=== PATIENT | male | born 1970 | race Caucasian/White ===

== ENCOUNTER 2022-02-27 17:48 | Emergency (ER) | payer OTHER, SELFPAY ==
[2022-02-27 17:49] VITALS: BP 144/104; PULSE 82; RESP 15; TEMP 36.5; O2SAT 98; BMI 33.2
--- NOTE | 2022-02-27 18:16 | RAD_ITS ---
STUDY: X-RAY CHEST REASON FOR EXAM: Male, 51 years old. injury TECHNIQUE: PA and lateral views of the chest. COMPARISON: None. FINDINGS: The lungs are clear and expanded. There is no demonstrated pleural abnormality. Normal size heart. Normal mediastinum and cale. Normal visualized pulmonary arteries. Normal visualized aortic arch and descending thoracic aorta. Normal visualized thoracic spine. Normal visualized ribs, clavicles, and shoulders. There is no demonstrated abnormality of the visualized soft tissue structures of the upper abdomen. RAD/Chest PA and Lateral IMPRESSION: Normal x-ray examination of the chest. Electronically Signed: Freddie Corbin MD at 18:37 EST ,
--- NOTE | 2022-02-27 18:31 | CT_ITS ---
STUDY: CT ABDOMEN AND PELVIS WITH CONTRAST REASON FOR EXAM: Male, 51 years old. R flank blunt trauma RADIATION DOSAGE (If Supplied By Facility): CTDIvol = ( 15.87 ) mGy, DLP = ( 1275.90 ) mGycm TECHNIQUE: Transaxial images were obtained from the dome of the diaphragm to the symphysis pubis without oral contrast. IV 100mL Isovue-370 was administered. Sagittal and coronal images were reconstructed. Individualized dose optimization techniques were used for this CT. COMPARISON: None. FINDINGS: The visualized lung bases are unremarkable. The visualized portions of the heart are within normal limits. There is a 3 cm oval area of decreased attenuation and/or enhancement within the medial aspect of the posterior segment the right lobe of the liver adjacent to Morison space worrisome for laceration/hematoma. This appears confined by the liver capsule. No hemoperitoneum is appreciated. Normal gallbladder and extrahepatic biliary system. Normal spleen. Normal pancreas. Normal bilateral adrenal glands. Normal right kidney. Normal left kidney. There is a small hiatal hernia. Normal small intestine. Normal colon. There is non-visualization of the appendix. Normal abdominal aorta. Normal inferior vena cava. Normal retroperitoneum. Normal urinary bladder. Normal abdominal wall. Normal osseous structures. CT/Abdomen/Pelvis W IV Cont ONLY IMPRESSION: Suspect 3 cm laceration/hematoma of the subcapsular medial aspect of the posterior segment the right lobe of the liver. No gross hemoperitoneum. N.B. : The above Results were Read Back by Freddie Corbin MD to Jimmie Alejandre MD, and understanding confirmed on 02/27/2022 19:36:48 (ET). Electronically Signed: Freddie Corbin MD at 19:38 EST ,
[2022-02-27 18:35] LABS: Absolute Neutrophil Count 8.3 X10^3/uL (2.0-7.7); Basophil# 0.04 X10^3/uL; Basophil% 0.4 % (0-1); Eosinophil# 0.08 X10^3/uL; Eosinophils% 0.7 % (0-5); Hematocrit 44.3 % (40-54); Hemoglobin 15.1 g/dL (13.0-16.5); Lymphocyte % 15.3 % (19-41); Mean Corp Hgb Conc 34.1 g/dL (32-36); Mean Corpuscular Hgb 30.9 pg (27.0-32.0); Mean Corpuscular Volume 90.8 fL (80-94); Mean Platelet Vol. 8.8 fl (6.2-12.0); Monocyte# 0.97 X10^3/uL; Monocyte% 8.7 % (0-10); NRBC Flagged by Analyzer 0 % (0-5); Neutrophil # 8.31 X10^3/uL (2.7-7.7); Neutrophil % 74.5 % (47-70); Platelet Count 301 K/mm3 (150-450); RBC Distribution Width CV 11.6 % (11.6-14.6); RBC Distribution Width SD 38.5 fl (35.1-43.9); Red Blood Count 4.88 M/mm3 (4.6-6.2); White Blood Count 11.1 K/mm3 (4.4-11.0)
[2022-02-27 18:40] LABS: Mucous, Urine 0 SEEN /hpf (<or=2+)
[2022-02-27 18:41] LABS: Color, Urine Yellow (Yellow); Glucose, Dipstick Normal (Normal); Ketone-Dipstick 50 mg/dl (Negative); Leukocyte Esterase-Dipstick 25 /ul (Negative); Nitrite-Dipstick Negative (Negative); Occult Blood-Urine 10 /ul (Negative); Protein-Dipstick 15 mg/dl (Negative); Urine Bilirubin Dipstick Negative (Negative); Urine Clarity Clear (Clear); Urine Urobilinogen Normal (Normal)
[2022-02-27] MEDS: 0.9% Normal Saline 1,000 ML 999 ML IV (18:48)
[2022-02-27 18:52] LABS: Anion Gap 6 (5-15); BUN 21 mg/dL (7-18); BUN/Creat Ratio 16.9 RATIO (10-20); Calcium,Total 9.2 mg/dL (8.5-10.1); Chloride 105 mmol/L (98-107); Creatinine, Serum 1.24 mg/dL (0.70-1.30); EST Glomerular Filtration Rate 66 mL/min (>60); Est Glom Filt Rate - Afr Amer 80 mL/min (>60); Estimated Creatinine Clearance 72.06 ml/min; Glucose 101 mg/dL (74-106); Potassium 3.8 mmol/L (3.5-5.1); Sodium Level 139 mmol/L (136-145)
[2022-02-27 19:12] LABS: Red Blood Cells-Urine 0-5 SEEN /hpf (0-5); Squamous Epithelial Cells - UA 0-5 SEEN /hpf (0-5); White Blood Cells 0-5 SEEN /hpf (0-5)
[2022-02-27 19:13] LABS: Bacteria RARE /hpf (None Seen)
--- NOTE | 2022-02-27 19:15 | NURSING ---
patient brought back to room with orders already in place from triage. in with patient at this time
[2022-02-27] MEDS: Ondansetron 4 MG/2 ML Vial IV (19:27)
[2022-02-27] MEDS: fentaNYL 100 MCG/2 ML Ampul 50 MCG IV ×2 (19:27→21:37)
[2022-02-27 19:35] VITALS: O2SAT 98
--- NOTE | 2022-02-27 20:13 | EX.ED.GENINJ ---
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 He complains of pain locally at that area which is severe. He denies any nausea or vomiting, dyspnea although it does hurt to take deep breath, or fall or other injury except for a small hematoma that he thinks he has on the dorsum of his left forearm. PFSH PFSH no medical history Allergy/AdvReac Type Severity Reaction Status Date / Time No Known Allergies Allergy Verified 02/27/22 17:53 Social History Smoking Status: Never smoker ROS ROS ED Constitutional Constitutional ED: Denies chills or fever(s) Eyes Eyes: Denies change in vision or diplopia ENT ENT ED: Denies ear pain, epistaxis, facial pain or rhinorrhea Cardiovascular Cardiovascular: Denies chest pain or palpitations Respiratory/Chest Respiratory/Chest: Denies cough or dyspnea Gastrointestinal Gastrointestinal: Reports abdominal pain; Denies diarrhea, melena, nausea or vomiting Genitourinary Genitourinary ED: Reports flank pain; Denies dysuria or hematuria Musculoskeletal Musculoskeletal: Denies back pain, extremity pain or neck pain Integumentary Denies abscess, Abrasions, laceration or rash Neurologic Neurologic: Denies confusion, headache(s), paresthesias or weakness EXAM Physical Exam Const Vital Signs: 02/27/22 17:49 02/27/22 19:35 Temperature 97.7 F L Temperature Source Oral Pulse Rate 82 Respiratory Rate 15 Blood Pressure 144/104 H Blood Pressure Mean 117 Pulse Ox 98 98 Oxygen Delivery Method Room Air Room Air Positive well nourished and well developed General Appearance ED: well developed and NAD HEENT Reports TM's clear and nasal mucous membranes and turbinates normal atraumatic Face and Sinus: Negative for facial tenderness Tympanic Membrane ED: Yes TM's clear Eyes PERRL and EOMs intact bilaterally Visual Acuity: other Other Details: no entrapment or pain with extraocular movements Neck full ROM and supple General: Negative for tenderness Chest Wall inspection of chest normal Chest Narrative: Tender right lower lateral rib cage without crepitance, subcutaneous emphysema, flail Chest: symmetrical chest wall rise and tenderness; Negative for crepitus Resp normal respiratory effort and clear to auscultation bilaterally Percussion: other equal BS bilat Cardio no murmurs Rate: regular rate Rhythm: regular rhythm GI normal to inspection, nondistended, normoactive bowel sounds and soft to palpation GI Narrative: Tender in the right lateral flank, over the lowermost rib cage as well as the subcostal flank. No anterior abdominal tenderness. Back/Spine Back/Spine Narrative: Limited range of motion due to pain in the right flank, no back tenderness Cervical Spine: Negative for cervical spine tenderness Thoracic Spine / Upper Back: Negative for thoracic spinal tenderness Lumbar Spine / Lower Back: Negative for lumbar spinal tenderness Extremity normal to inspection and full ROM General Extremety ED: Negative for tenderness Neuro oriented x3, CN's II-XII intact bilaterally, moves all extremities, no focal motor deficits and no sensory deficits noted [place] Coma Scale: document GCS findings Spontaneous Obeys Commands Oriented 15 Sensorium / Orientation: awake and alert Psych mental status grossly normal and thought process normal Skin Skin Narrative: Abrasion/contusion right flank, small, no Rojo Hayden or Edgard sign and no other signs of trauma except for a small palpable tender contusion on the dorsum of the left mid forearm Lesions: no lesions Rashes: no rashes MDM MDM MDM Narrative Medical decision making narrative: Patient presents while there are 8-10 patients in the waiting room and no beds available in the emergency department due to volume and boarded patients, so protocol orders were placed by nursing in coordination with me. Labs were ordered in addition to a chest x-ray initially which I reviewed myself, it shows no obvious displaced rib fracture or pneumothorax, so CT of the abdomen/pelvis was then obtained, he obtained these images just prior to being placed into an ED exam room for evaluation so I did not have the chance to do a FAST exam although his blood pressure is stable and his vital signs remained stable throughout his ED evaluation. The CT with IV contrast shows what appears to be a localized subcapsular hematoma of the liver, medial aspect of the right lobe, and no other acute abnormality. He has slight microscopic hematuria without red cells, his kidney does not appear injured on the imaging. I do not think he needs any other images at this time. The small hematoma on his left dorsal forearm I think is just that, when bent at 90 degrees of the elbow he can pronate and supinate painlessly making bony injury very unlikely. He has no other injured areas. He initially declined fentanyl but later excepted it in addition to the IV fluids and Zofran that was ordered. I discussed with his first choice [facility], Dr. Chatman there accepts the patient to the emergency department for further evaluation disposition. Lab Data Attestation: I reviewed the patient's lab results. Labs: Laboratory Results - last 24 hr 02/27/22 02/27/22 02/27/22 18:28 18:28 18:36 WBC 11.1 H RBC 4.88 Hgb 15.1 Hct 44.3 MCV 90.8 MCH 30.9 MCHC 34.1 RDW Std Deviation 38.5 RDW Coeff of Lyndsey 11.6 Plt Count 301 MPV 8.8 Immature Gran % (Auto) 0.400 Neut % (Auto) 74.5 H Lymph % (Auto) 15.3 L Mineral % (Auto) 8.7 Eos % (Auto) 0.7 Baso % (Auto) 0.4 Absolute Neuts (auto) 8.3 H Absolute Lymphs (auto) 1.70 Nucleated RBC % 0 Sodium 139 Potassium 3.8 Chloride 105 Carbon Dioxide 28.0 Anion Gap 6 BUN 21 H Creatinine 1.24 Estim Creat Clear Calc 72.06 Est GFR (MDRD) Af Amer 80 Est GFR (MDRD) Non-Af 66 BUN/Creatinine Ratio 16.9 Glucose 101 Calcium 9.2 Urine Color Yellow Urine Clarity Clear Urine pH 7.0 Ur Specific [place] 1.010 Urine Protein 15 H Urine Glucose (UA) Normal Urine Ketones 50 H Urine Occult Blood 10 H Urine Nitrite Negative Urine Bilirubin Negative Urine Urobilinogen Normal Ur Leukocyte Esterase 25 H Urine RBC 0-5 SEEN Urine WBC 0-5 SEEN Ur Squamous Epith Cells 0-5 SEEN Urine Bacteria RARE Urine Mucus 0 SEEN Radiography Diagnostic Testing: Clinical Impression(s) from Imaging Studies Chest X-Ray 02/27/22 18:16 IMPRESSION: Normal x-ray examination of the chest. Electronically Signed: Freddie Corbin MD at 18:37 EST , Abdomen/Pelvis CT 02/27/22 18:31 IMPRESSION: Suspect 3 cm laceration/hematoma of the subcapsular medial aspect of the posterior segment the right lobe of the liver. No gross hemoperitoneum. N.B. : The above Results were Read Back by Freddie Corbin MD to Jimmie Alejandre MD, and understanding confirmed on 02/27/2022 19:36:48 (ET). Electronically Signed: Freddie Corbin MD at 19:38 EST , ADDENDUM: 02/27/22 194 IMPRESSION: Suspect 3 cm laceration/hematoma of the subcapsular medial aspect of the posterior segment the right lobe of the liver. No gross hemoperitoneum. N.B. : The above Results were Read Back by Freddie Corbin MD to Jimmie Alejandre MD, and understanding confirmed on 02/27/2022 19:36:48 (ET). Electronically Signed: Freddie Corbin MD at 19:38 EST , Discharge Plan Triage Chief Complaint: Trauma ED Provider: Jimmie Alejandre Dx/Rx/DC Orders Clinical Impression: Subcapsular hematoma of liver, Blunt abdominal trauma Primary Care Provider: Florencio Crum Referrals: Florencio Crum DO [Primary Care Provider] - Disposition Disposition: Acute Care Hospital Discharge Location: [facility]
[2022-02-27 20:20] LABS: AST(SGOT) 108 U/L (15-37); Alanine Aminotransfer ALT/SGPT 118 U/L (16-61); Albumin, Serum 4.4 g/dL (3.2-5.0); Alkaline Phosphatase 88 U/L (45-117); Bilirubin, Direct 0.15 mg/dL (0.00-0.30); Globulin 3.2 g/dL (2.2-4.2); Protein, Total 7.6 g/dL (6.4-8.2)
[2022-02-27 20:24] VITALS: BP 136/78; PULSE 79; RESP 15; O2SAT 98
[2022-02-27 20:57] VITALS: BP 136/78; PULSE 80; RESP 16; O2SAT 99
== END 2022-02-27 23:45 | disposition short-term general hospital (02) ==
PROVIDERS: Emergency Provider Emergency Medicine; PCP Family Medicine; Visit Provider Emergency Medicine
DX: S36.112A Contusion of liver, initial encounter (principal); W22.8XXA Striking against or struck by other objects, initial encounter
CPT/HCPCS: 71046; 74177; 80048; 80076; 81001; 85025; 87077; 87086; 87088; 96374; 96375; 96376; 99285; J7030; Q9967; A4216; J2405

== ENCOUNTER → 2023-10-01 | Outpatient (CLI) | payer SELFPAY ==
--- NOTE | 2023-10-01 12:02 | EKG12_ITS ---
Test Reason : PREOP Blood Pressure : / mmHG Vent. Rate : 069 BPM Atrial Rate : 069 BPM P-R Int : 176 ms QRS Dur : 084 ms QT Int : 394 ms P-R-T Axes : 043 037 054 degrees QTc Int : 422 ms Normal sinus rhythm Normal ECG Confirmed by RASHAWN JACOBSON, MIKHAIL ([id number]), visual effects editor JACKIE KHAN ([id number]) on 10/01/2023 1:23:29 PM Referred By: Valentín Gilbert Confirmed By:MIKHAIL MOROCHO MD
== END | disposition home or self-care (01) ==
PROVIDERS: PCP Family Medicine; Referring Provider Otolaryngology; Visit Provider Otolaryngology
DX: Z01.810 Encounter for preprocedural cardiovascular examination (principal)
CPT/HCPCS: 93005